=== PATIENT | male | born 1940 | race Caucasian/White ===

== ENCOUNTER 2021-11-05 04:20 | Inpatient (IN) | payer MEDICARE, BC ==
[~2021-11-05] VITALS: Ht 182.9 cm; Wt 86.2 kg
[2021-11-05] MEDS ORDERED: GABA1TAB (04:38)
[2021-11-05] MEDS ORDERED: ESCI10TA (04:38)
[2021-11-05] MEDS ORDERED: HYDR25TA86 (04:38)
[2021-11-05] MEDS ORDERED: ONDA4TAB5 PO (04:38)
--- NOTE | 2021-11-05 04:40 | NUR ---
perineal care done
--- NOTE | 2021-11-05 05:43 | NUR ---
Dr Espana at bedside, MSE in progress
--- NOTE | 2021-11-05 05:50 | NUR ---
wound care done.
[2021-11-05] MEDS ORDERED: TDAP DIPH,PERTUSS,TET VAC/PF 0.5 ML DISP.SYRIN IM ONE ×2 (06:00→06:03)
--- NOTE | 2021-11-05 06:00 | NUR ---
Patient taken to CT
[2021-11-05 06:12] LABS: HEMATOCRIT 31.8 % (36.7-47.1); MEAN CORPUSCULAR HEMOGLOBIN 29.1 uug (23.8-33.4); MEAN CORPUSCULAR VOLUME 86.2 fL (73.0-96.2); PLATELET COUNT (AUTO) 257 K/uL (152-348)
[2021-11-05] MEDS ORDERED: LIDOCAINE 1%-EPI 1:100,000 20 ML VIAL ONE (06:21)
--- NOTE | 2021-11-05 06:23 | NUR ---
Patient is back from CT
[2021-11-05 06:54] LABS: ALANINE AMINOTRANSFERASE 19 U/L (16-63); ALKALINE PHOSPHATASE 100 U/L (50-136); ASPARTATE AMINOTRANSFERASE 11 U/L (15-37); BILIRUBIN,DIRECT 0.1 mg/dL (0.0-0.2); BILIRUBIN,TOTAL 0.4 mg/dL (0.2-1.0); CARBON DIOXIDE 30 mmol/L (21-32); CHLORIDE 103 mmol/L (98-107); CREATININE 1.8 mg/dL (0.6-1.3); TOTAL PROTEIN, SERUM 7.1 g/dL (6.4-8.2); UREA NITROGEN, BLOOD 29 mg/dL (7-18)
[2021-11-05] MEDS ORDERED: ACET-2154 PO (06:54)
[2021-11-05] MEDS ORDERED: FERR325T28 PO (06:54)
[2021-11-05] MEDS ORDERED: INSU100V7 SQ (06:54)
[2021-11-05] MEDS ORDERED: DOCU100C36 PO (06:54)
[2021-11-05] MEDS ORDERED: FAMO-132 PO (06:54)
[2021-11-05] MEDS ORDERED: CALC100067 PO (06:54)
[2021-11-05] MEDS ORDERED: MAG30ORA PO (06:54)
[2021-11-05] MEDS ORDERED: FOLI0.8T2 PO (06:54)
[2021-11-05] MEDS ORDERED: LINA5TAB PO (06:54)
[2021-11-05] MEDS ORDERED: NUT.237L67 PO (06:54)
[2021-11-05] MEDS ORDERED: FLUD0.1T PO (06:54)
[2021-11-05] MEDS ORDERED: MAGN400O6 PO (06:54)
[2021-11-05] MEDS ORDERED: ONDA-104 PO (06:54)
[2021-11-05] MEDS ORDERED: GABA-532 PO (06:54)
[2021-11-05] MEDS ORDERED: HYDR-4077 PO ×2 (06:54)
[2021-11-05] MEDS ORDERED: POTA8TAB3 PO (06:54)
[2021-11-05] MEDS ORDERED: LOPE2TAB25 PO (06:54)
[2021-11-05] MEDS ORDERED: ERGO50CA PO (06:54)
[2021-11-05 06:57] LABS: GLUCOSE 312 mg/dL (74-106)
[2021-11-05] MEDS ORDERED: LIDOCAINE 1%-EPI 1:100,000 20 ML VIAL IJ ONE (07:00)
[2021-11-05] MEDS ORDERED: LIDOCAINE HCL 1% 20 ML VIAL IJ ONE (07:00)
--- NOTE | 2021-11-05 07:13 | NUR ---
change of shift report to incoming RN
--- NOTE | 2021-11-05 07:15 | NUR ---
DR Lepe spoke to Dr Fortune for admission.
[2021-11-05] MEDS ORDERED: ONDANSETRON 4 MG/2 ML VIAL ONE (07:44)
[2021-11-05] MEDS ORDERED: ACETAMINOPHEN 325 MG TABLET-SA PATIENTS-PAIN ONLY PO PRN (08:45)
[2021-11-05] MEDS ORDERED: MAG HYDROX/AL HYDROX/SIMETH 30 ML LIQUID UDC PO PRN (08:45)
[2021-11-05 08:46] LABS: CREATINE KINASE, TOTAL 89 U/L (39-308)
[2021-11-05] MEDS ORDERED: ACETAMINOPHEN 325 MG TABLET PO PRN (09:15)
[2021-11-05] MEDS: LINAGLIPTIN 5 MG TABLET PO SCH (09:17)
[2021-11-05] MEDS: FERROUS SULFATE 325 MG TABEC PO SCH (09:17)
[2021-11-05] MEDS: NEPRO (VANILLA) 237 ML CAN PO SCH (09:18)
[2021-11-05] MEDS ORDERED: ACETAMINOPHEN 325 MG TABLET ONE (09:20)
[2021-11-05] MEDS ORDERED: DOCUSATE SODIUM 100 MG CAPSULE PO ONE (09:20)
[2021-11-05] MEDS ORDERED: hydrALAZINE HCL 50 MG TABLET ONE (09:21)
[2021-11-05] MEDS ORDERED: FAMOTIDINE 20 MG TABLET ONE (09:21)
[2021-11-05] MEDS ORDERED: GABAPENTIN 100 MG CAPSULE ONE (09:21)
[2021-11-05] MEDS ORDERED: ESCI10TA PO (09:25)
[2021-11-05] MEDS: DOCUSATE SODIUM 100 MG CAPSULE PO SCH ×2 (09:27→16:26)
[2021-11-05] MEDS: hydrALAZINE HCL 50 MG TABLET PO SCH ×3 (09:27→22:26)
[2021-11-05] MEDS: FAMOTIDINE 20 MG TABLET PO SCH (09:27)
[2021-11-05] MEDS: FOLIC ACID/VITAMIN B COMP W-C TABLET PO SCH (09:27)
[2021-11-05] MEDS: GABAPENTIN 100 MG CAPSULE PO SCH ×2 (09:27→16:26)
--- NOTE | 2021-11-05 09:30 | NUR ---
Pt C/O headache, Tylenol 650 Po given.
--- NOTE | 2021-11-05 10:30 | NUR ---
Acetaminophen effective, pt denies headache.
--- NOTE | 2021-11-05 12:20 | NUR ---
Pt assissted w/ feeding. Ate 100% of lunch tray.
--- NOTE | 2021-11-05 13:10 | NUR ---
Dr Fortune at the bedside.
--- NOTE | 2021-11-05 13:44 | NUR ---
Patient is resting comfortably in bed with eyes closed, NAD noted.
--- NOTE | 2021-11-05 15:42 | NUR ---
Received report from [employer]. Patient admitted onto unit. Photos taken of patient's laceration on posterior head. Patient uneasy about assessing skin for sores or wounds.
[2021-11-05 16:00] VITALS: BP 155/89
--- NOTE | 2021-11-05 18:33 | NUR ---
Patient received care well throughout shift with no complaints of pain or distress. IV site on right antecubital patent and intact. Admission process completed. Photos of patient's wound on posterior head taken and placed in chart. Bed left in lowest position with call light within reach. Will endorse information to PM nurse.
[2021-11-05 20:32] VITALS: BP 154/90
[2021-11-06 00:01] VITALS: BP 161/82
[2021-11-06 04:16] VITALS: BP 137/70
--- NOTE | 2021-11-06 05:58 | NUR ---
Slept intermittently, no noted acute distress. Denies chest pain. Assisted to the BR. Needs assessed and attended to. Bed in locked and low position w/ call light within easy reach.
[2021-11-06] MEDS: hydrALAZINE HCL 50 MG TABLET PO SCH ×3 (06:09→21:35)
[2021-11-06] MEDS: FOLIC ACID/VITAMIN B COMP W-C TABLET PO SCH (08:27)
[2021-11-06] MEDS: FLUDROCORTISONE ACETATE 0.1 MG TABLET PO SCH (08:27)
[2021-11-06] MEDS: LINAGLIPTIN 5 MG TABLET PO SCH (08:27)
[2021-11-06] MEDS: FAMOTIDINE 20 MG TABLET PO SCH (08:27)
[2021-11-06] MEDS: FERROUS SULFATE 325 MG TABEC PO SCH (08:27)
[2021-11-06] MEDS: GABAPENTIN 100 MG CAPSULE PO SCH (08:27)
[2021-11-06] MEDS: DOCUSATE SODIUM 100 MG CAPSULE PO SCH ×2 (08:30→16:11)
[2021-11-06] MEDS ORDERED: DEXTROSE 50% 50 ML DISP.SYRIN IV PRN (08:30)
[2021-11-06] MEDS: NEPRO (VANILLA) 237 ML CAN PO SCH (08:36)
[2021-11-06] MEDS ORDERED: ASPIRIN 81 MG TAB.CHEW PO SCH (09:00)
[2021-11-06 09:08] LABS: HEMATOCRIT 33.3 % (36.7-47.1); MEAN CORPUSCULAR HEMOGLOBIN 29.7 uug (23.8-33.4); MEAN CORPUSCULAR VOLUME 87.2 fL (73.0-96.2); PLATELET COUNT (AUTO) 264 K/uL (152-348)
[2021-11-06 09:30] LABS: CARBON DIOXIDE 28 mmol/L (21-32); CHLORIDE 101 mmol/L (98-107); CREATININE 1.9 mg/dL (0.6-1.3); UREA NITROGEN, BLOOD 30 mg/dL (7-18)
[2021-11-06 09:35] LABS: GLUCOSE 303 mg/dL (74-106)
[2021-11-06 09:36] LABS: ALANINE AMINOTRANSFERASE 26 U/L (16-63); ALKALINE PHOSPHATASE 103 U/L (50-136); ASPARTATE AMINOTRANSFERASE 14 U/L (15-37); BILIRUBIN,TOTAL 0.5 mg/dL (0.2-1.0); CHOLESTEROL 190 mg/dL (<200); HDL CHOLESTEROL 46 mg/dL (40-60); MAGNESIUM 1.9 mg/dL (1.8-2.4); PHOSPHOROUS 3.3 mg/dL (2.5-4.9); TOTAL PROTEIN, SERUM 7.6 g/dL (6.4-8.2); TRIGLYCERIDES 157 MG/DL (30-150)
[2021-11-06 09:48] LABS: IRON, SERUM 55 ug/dL (50-175)
[2021-11-06 09:59] LABS: THYROID STIMULATING HORMONE 1.161 mIU/mL (0.358-3.740)
[2021-11-06 11:05] VITALS: BP 152/82
[2021-11-06] MEDS: BLOOD SUGAR DIAGNOSTIC 1 EACH STRIP VI SCH ×3 (11:31→21:24)
[2021-11-06] MEDS: INSULIN REGULAR, HUMAN 300 UNIT/3 ML VIAL SQ PRN ×2 (11:36→16:17)
--- NOTE | 2021-11-06 12:31 | NUR ---
Patient being picked up by EMT for transfer to [place] for MRI of Brain without contrast.
--- NOTE | 2021-11-06 12:59 | NUR ---
WOUND CARE CONSULT: PT OFF CAMPUS AT THIS TIME HAVING MRI. DISCUSSED SKIN WITH NURSING STAFF AND RN REPORTS CLOSED HEAD LACERATION AND SOME REDNESS TO GROIN FOLDS/SCROTUM, PRESENT ON ADMISSION. RECOMMENDATIONS MADE FOR SKIN PROTECTION. DISCUSSED WITH NURSING STAFF. MD IN AGREEMENT WITH PLAN OF CARE.
[2021-11-06] MEDS ORDERED: REMEDY ESSENTIAL ZINC PASTE 113 GM TOP PRN (13:15)
--- NOTE | 2021-11-06 14:34 | NUR ---
pt off campus for MRI, will do carotid and kidney us tmrw.
--- NOTE | 2021-11-06 15:13 | NUR ---
Patient back on unit.
[2021-11-06 15:21] VITALS: BP 159/80
[2021-11-06] MEDS: CLOPIDOGREL 75 MG TABLET PO SCH (16:11)
[2021-11-06] MEDS: CLOTRIMAZOLE 1% CREAM 30 GM TUBE TOP SCH (16:11)
--- NOTE | 2021-11-06 18:30 | NUR ---
Patient received care well throughout shift with minimal complaints of pain or distress. Patient seen by PT and classified patient as moderate assistance. Patient able to use walker with assistance, but claims to be dizzy when standing up. Patient seen by speech therapist and placed patient on mechanical soft diet. IV site in place and patent. Bed left in lowest position with call light within reach. Will endorse information to PM nurse.
--- NOTE | 2021-11-06 20:00 | NUR ---
Patient sinus rhythm with episode of sinus tach twice but not sustaining. Patient has no complain of chest pain, no headaches, bed alarm is on, call light within reach.
--- NOTE | 2021-11-06 20:00 | NUR ---
Received patient in bed, watching TV no sob no chest pain, no complain of pain, given po meds tolerate tolerate no choking, no gagging noted. offered urinal for bladder elimination, but also uses diaper episode of incontinence. Tx done on scrotum redness, call light within reach, cont to monitor.
[2021-11-06 20:42] VITALS: BP 156/100
[2021-11-06] MEDS: ESCITALOPRAM OXALATE 10 MG TABLET PO SCH (21:28)
[2021-11-06] MEDS: ATORVASTATIN 40 MG TABLET PO SCH (21:28)
[2021-11-07 00:15] VITALS: BP 155/86
[2021-11-07 04:46] VITALS: BP 155/85
[2021-11-07] MEDS: hydrALAZINE HCL 50 MG TABLET PO SCH ×3 (05:03→21:00)
[2021-11-07] MEDS: BLOOD SUGAR DIAGNOSTIC 1 EACH STRIP VI SCH ×4 (05:04→21:00)
--- NOTE | 2021-11-07 05:36 | NUR ---
Patient awake but forgetful no sob no chest pain, no complain of pain, encouraged to turn and reposition, voiding freely, no complain of headaches, no dizziness at this time, cont to monitor.
[2021-11-07 07:03] LABS: HEMATOCRIT 30.1 % (36.7-47.1); MEAN CORPUSCULAR HEMOGLOBIN 29.1 uug (23.8-33.4); PLATELET COUNT (AUTO) 228 K/uL (152-348)
[2021-11-07 07:15] LABS: CARBON DIOXIDE 27 mmol/L (21-32); CHLORIDE 102 mmol/L (98-107); CREATININE 1.7 mg/dL (0.6-1.3); GLUCOSE 206 mg/dL (74-106); MAGNESIUM 1.9 mg/dL (1.8-2.4); PHOSPHOROUS 3.7 mg/dL (2.5-4.9); POTASSIUM 3.6 mmol/L (3.5-5.1); UREA NITROGEN, BLOOD 32 mg/dL (7-18)
--- NOTE | 2021-11-07 08:00 | NUR ---
resting in bed, oriented x 3 but forgetful, tele ST 102, on room air, no dyspnea noted, denies of pain, readied for breakfast, call light within reach
[2021-11-07] MEDS: LINAGLIPTIN 5 MG TABLET PO SCH (08:51)
[2021-11-07] MEDS: FAMOTIDINE 20 MG TABLET PO SCH (08:51)
[2021-11-07] MEDS: INSULIN REGULAR, HUMAN 300 UNIT/3 ML VIAL SQ PRN ×4 (08:51→21:02)
[2021-11-07] MEDS: FLUDROCORTISONE ACETATE 0.1 MG TABLET PO SCH (08:52)
[2021-11-07] MEDS: FOLIC ACID/VITAMIN B COMP W-C TABLET PO SCH (08:52)
[2021-11-07] MEDS: FERROUS SULFATE 325 MG TABEC PO SCH (08:52)
[2021-11-07] MEDS: CLOPIDOGREL 75 MG TABLET PO SCH (08:52)
[2021-11-07] MEDS: NEPRO (VANILLA) 237 ML CAN PO SCH (08:52)
[2021-11-07] MEDS: DOCUSATE SODIUM 100 MG CAPSULE PO SCH ×2 (08:52→17:09)
[2021-11-07] MEDS: CLOTRIMAZOLE 1% CREAM 30 GM TUBE TOP SCH ×2 (08:53→17:07)
[2021-11-07 11:00] VITALS: BP 151/91
--- NOTE | 2021-11-07 11:30 | NUR ---
son here visiting
[2021-11-07 16:00] VITALS: BP 143/88
--- NOTE | 2021-11-07 18:24 | NUR ---
no distress noted, cooperative with care, dozing on and off in between care, all needsa ttended and met, call light within reach
[2021-11-07 20:20] VITALS: BP 160/88
[2021-11-07] MEDS: ATORVASTATIN 40 MG TABLET PO SCH (21:00)
[2021-11-07] MEDS: ESCITALOPRAM OXALATE 10 MG TABLET PO SCH (21:00)
[2021-11-08 00:43] VITALS: BP 159/82
[2021-11-08 04:28] VITALS: BP 163/88
[2021-11-08] MEDS: hydrALAZINE HCL 50 MG TABLET PO SCH ×2 (06:04→14:33)
[2021-11-08] MEDS: BLOOD SUGAR DIAGNOSTIC 1 EACH STRIP VI SCH ×3 (06:14→17:13)
[2021-11-08] MEDS: INSULIN REGULAR, HUMAN 300 UNIT/3 ML VIAL SQ PRN ×3 (08:17→17:20)
[2021-11-08] MEDS: FLUDROCORTISONE ACETATE 0.1 MG TABLET PO SCH (08:18)
[2021-11-08] MEDS: LINAGLIPTIN 5 MG TABLET PO SCH (08:18)
[2021-11-08] MEDS: NEPRO (VANILLA) 237 ML CAN PO SCH (08:18)
[2021-11-08] MEDS: DOCUSATE SODIUM 100 MG CAPSULE PO SCH ×2 (08:18→17:21)
[2021-11-08] MEDS: FAMOTIDINE 20 MG TABLET PO SCH (08:18)
[2021-11-08] MEDS: CLOPIDOGREL 75 MG TABLET PO SCH (08:18)
[2021-11-08] MEDS: FERROUS SULFATE 325 MG TABEC PO SCH (08:18)
[2021-11-08] MEDS: FOLIC ACID/VITAMIN B COMP W-C TABLET PO SCH (08:18)
[2021-11-08] MEDS: CLOTRIMAZOLE 1% CREAM 30 GM TUBE TOP SCH ×2 (08:19→17:22)
--- NOTE | 2021-11-08 08:30 | NUR ---
resting in bed, oriented x 2-3, forgetful, tele SR 98, denies of pain, on room air, no dyspnea noted, ate fair for breakfast, on aspiration precautions, no coughing noted, tech here to do 2d echo, call light within each
[2021-11-08] MEDS ORDERED: METOPROLOL TARTRATE 25 MG TABLET PO SCH (09:30)
--- NOTE | 2021-11-08 11:30 | NUR ---
seen by Dr Cason with order
--- NOTE | 2021-11-08 11:53 | NUR ---
PT here at bedside, urine specimen sent to lab
[2021-11-08 11:58] VITALS: BP 144/91
[2021-11-08 16:04] VITALS: BP 135/74
--- NOTE | 2021-11-08 18:48 | NUR ---
no distress noted, cooperative with care, watching TV at times, all needs attended and met, call light within reach
[2021-11-08 19:00] LABS: *BILIRUBIN,URIN NEGATIVE (NEGATIVE); *BLOOD, URINE NEGATIVE (NEGATIVE); *CLARITY,URINE CLEAR (CLEAR); *COLOR,URINE YELLOW (YELLOW); *KETONES,URINE NEGATIVE (NEGATIVE); *UROBILINOGEN,URINE 0.2 E.U./dl (NORMAL); LEUKOCYTE ESTERASE ,URINE NEGATIVE (NEGATIVE); NITRITE, URINE NEGATIVE (NEGATIVE); PH,URINE 5.5 (5.0-8.0)
[2021-11-08] MEDS ORDERED: Insulin Glargine,Hum SQ (19:06)
[2021-11-08] MEDS ORDERED: METO25TA6 PO (19:06)
[2021-11-08] MEDS ORDERED: ATOR40TA PO (19:06)
[2021-11-08] MEDS ORDERED: HYDR50TA68 PO (19:06)
[2021-11-08] MEDS ORDERED: MENT113O TOP (19:06)
[2021-11-08] MEDS ORDERED: CLOP75TA33 PO (19:06)
[2021-11-08] MEDS ORDERED: Blood Sugar Diagnostic VI (19:06)
[2021-11-08] MEDS ORDERED: CLOT30CR24 TOP (19:06)
[2021-11-08] MEDS ORDERED: INSU100V28 SQ (19:06)
[2021-11-08] MEDS ORDERED: DEXT50DI8 IV (19:06)
[2021-11-08 19:10] LABS: UGLUCOSE 1+ (NEGATIVE)
[2021-11-08 19:20] LABS: BACTERIA,URINE FEW /HPF (NONE SEEN); RBC,URINE 0-3 /HPF (0-3); SQUAMOUS EPITHELIAL CELL,UR FEW /HPF (NONE SEEN); WBC,URINE 0-3 /HPF (0-3)
--- NOTE | 2021-11-08 19:39 | NUR ---
Patient DC by Dr. Guillaume from Med Surg and admit to ARU with Dx: Acute/subacute CVA.
[2021-11-08] MEDS ORDERED: INSULIN GLARGINE,HUM 300 UNITS/3 ML CARTRIDGE SQ SCH (21:00)
== END 2021-11-08 20:00 | DRG 64 ==
LOC: ER 04:23 → TRANSITION 07:59 → TELE3 14:41 → MEDSURG3 11-08 12:35
PROVIDERS: ADMIT Internal Medicine; ATTEND Internal Medicine
PROC: 0HQ0XZZ Repair Scalp Skin, External Approach (ICD-10-PCS; principal; 2021-11-05)
DX: I63.9 Cerebral infarction, unspecified (principal); N17.0 Acute kidney failure with tubular necrosis; G23.8 Other specified degenerative diseases of basal ganglia; D68.69 Other thrombophilia; S01.01XA Laceration without foreign body of scalp, initial encounter; Z20.822 Contact with and (suspected) exposure to COVID-19; Z86.73 Personal history of transient ischemic attack (TIA), and cerebral infarction without residual deficits; Z87.891 Personal history of nicotine dependence; Z98.61 Coronary angioplasty status; N18.9 Chronic kidney disease, unspecified; E11.65 Type 2 diabetes mellitus with hyperglycemia; I25.10 Atherosclerotic heart disease of native coronary artery without angina pectoris; R94.31 Abnormal electrocardiogram [ECG] [EKG]; F03.90 Unspecified dementia, unspecified severity, without behavioral disturbance, psychotic disturbance, mood disturbance, and anxiety; K21.9 Gastro-esophageal reflux disease without esophagitis; Z74.09 Other reduced mobility; D72.828 Other elevated white blood cell count; F32.9 Major depressive disorder, single episode, unspecified; E11.22 Type 2 diabetes mellitus with diabetic chronic kidney disease; E66.3 Overweight; E78.5 Hyperlipidemia, unspecified; Z96.652 Presence of left artificial knee joint; E11.51 Type 2 diabetes mellitus with diabetic peripheral angiopathy without gangrene; G90.8 Other disorders of autonomic nervous system; I95.1 Orthostatic hypotension; N20.0 Calculus of kidney; I70.8 Atherosclerosis of other arteries; R29.703 NIHSS score 3; Z79.4 Long term (current) use of insulin; W18.30XA Fall on same level, unspecified, initial encounter; Y93.9 Activity, unspecified; Y92.89 Other specified places as the place of occurrence of the external cause; I12.9 Hypertensive chronic kidney disease with stage 1 through stage 4 chronic kidney disease, or unspecified chronic kidney disease; Z66 Do not resuscitate
CPT/HCPCS: 36415; 70450; 70551; 71045; 76770; 83550; 83735; 84100; 84443; 84484; 85025; 87040; 87086; 90715; 93005; 93307; 93880; A4663; A6209; G0378; J1815; J2405; J3490

== ENCOUNTER 2021-11-06 14:49 | Inpatient (IN) | payer MEDICARE, BC ==
[~2021-11-06 14:49] MED LIST: ACET-2154 PO; CALC100067 PO; DOCU100C36 PO; ERGO50CA PO; ESCI10TA PO; FAMO-132 PO; FERR325T28 PO; FLUD0.1T PO; FOLI0.8T2 PO; GABA-532 PO; HYDR-4077 PO; INSU100V7 SQ; LINA5TAB PO; LOPE2TAB25 PO; MAG30ORA PO; MAGN400O6 PO; NUT.237L67 PO; ONDA-104 PO; POTA8TAB3 PO
[2021-11-08] MEDS ORDERED: METO25TA6 PO (19:06)
[2021-11-08] MEDS ORDERED: ATOR40TA PO (19:06)
[2021-11-08] MEDS ORDERED: CLOT30CR24 TOP (19:06)
[2021-11-08] MEDS ORDERED: CLOP75TA33 PO (19:06)
[2021-11-08] MEDS ORDERED: MENT113O TOP (19:06)
[2021-11-08] MEDS ORDERED: DEXT50DI8 IV (19:06)
[2021-11-08] MEDS ORDERED: HYDR50TA68 PO (19:06)
[2021-11-08] MEDS ORDERED: INSU100V28 SQ (19:06)
[2021-11-08] MEDS ORDERED: Insulin Glargine,Hum SQ (19:06)
[2021-11-08] MEDS ORDERED: Blood Sugar Diagnostic VI (19:06)
--- NOTE | 2021-11-08 20:05 | NUR ---
Admitted to ARU, Dx: Acute/subacute CVA. Routine admission care done, plan of care initiated. Assessed skin. Needs attended. Call light within easy reach.
[2021-11-08] MEDS ORDERED: CALMOSEPTINE 113 GM OINTMENT TOP PRN (20:15)
[2021-11-08] MEDS ORDERED: ACETAMINOPHEN 325 MG TABLET-SA PATIENTS-PAIN ONLY PO PRN (20:15)
[2021-11-08] MEDS ORDERED: DEXTROSE 50% 50 ML DISP.SYRIN IV PRN (20:15)
[2021-11-08 21:22] VITALS: BP 128/70
[2021-11-08] MEDS: BLOOD SUGAR DIAGNOSTIC 1 EACH STRIP VI SCH (22:03)
[2021-11-08] MEDS: METOPROLOL TARTRATE 25 MG TABLET PO SCH (22:04)
[2021-11-08] MEDS: ESCITALOPRAM OXALATE 10 MG TABLET PO SCH (22:05)
[2021-11-08] MEDS: ATORVASTATIN 40 MG TABLET PO SCH (22:05)
[2021-11-08] MEDS: hydrALAZINE HCL 50 MG TABLET PO SCH (22:07)
[2021-11-08] MEDS: INSULIN GLARGINE,HUM 300 UNITS/3 ML CARTRIDGE SQ SCH (22:09)
[2021-11-08] MEDS: INSULIN REGULAR, HUMAN 300 UNIT/3 ML VIAL SQ PRN (22:24)
[2021-11-09 04:15] VITALS: BP 120/72
[2021-11-09] MEDS: hydrALAZINE HCL 50 MG TABLET PO SCH ×3 (06:08→21:04)
[2021-11-09] MEDS ORDERED: REMEDY ESSENTIAL ZINC PASTE 113 GM TP PRN (06:15)
[2021-11-09] MEDS: BLOOD SUGAR DIAGNOSTIC 1 EACH STRIP VI SCH ×4 (07:01→20:37)
[2021-11-09 08:00] VITALS: BP 145/67
[2021-11-09] MEDS ORDERED: POTASSIUM CHLORIDE 8 MEQ TAB.PRT.SR PO SCH (09:00)
[2021-11-09] MEDS: METOPROLOL TARTRATE 25 MG TABLET PO SCH ×2 (09:00→20:36)
[2021-11-09] MEDS: GABAPENTIN 100 MG CAPSULE PO SCH ×2 (09:50→17:29)
[2021-11-09] MEDS: LINAGLIPTIN 5 MG TABLET PO SCH (09:50)
[2021-11-09] MEDS: FOLIC ACID/VITAMIN B COMP W-C TABLET PO SCH (09:50)
[2021-11-09] MEDS: CLOPIDOGREL 75 MG TABLET PO SCH (09:51)
[2021-11-09] MEDS: FAMOTIDINE 20 MG TABLET PO SCH (09:51)
[2021-11-09] MEDS: DOCUSATE SODIUM 100 MG CAPSULE PO SCH ×2 (09:51→17:29)
[2021-11-09] MEDS: CLOTRIMAZOLE 1% CREAM 30 GM TUBE TOP SCH ×2 (09:57→17:30)
[2021-11-09] MEDS: REMEDY ESSENTIAL ZINC PASTE 113 GM TOP SCH ×2 (09:57→20:37)
[2021-11-09] MEDS: NEPRO (VANILLA) 237 ML CAN PO SCH (10:00)
[2021-11-09] MEDS: INSULIN REGULAR, HUMAN 300 UNIT/3 ML VIAL SQ PRN ×3 (11:54→20:41)
[2021-11-09 16:16] VITALS: BP 125/75
--- NOTE | 2021-11-09 18:58 | NUR ---
patient in bed comfortable. He is on room air, has right hand IV 20 guage. A&Ox 2-3 with periods of confusion. He walked with PT today, after ghe was exhausted. No complain of pain and no distress nor discomfort noted. BS 356 @1130 10 units given, 278 at 1630 with 6 units given.
[2021-11-09 20:08] VITALS: BP 119/62
[2021-11-09] MEDS: ATORVASTATIN 40 MG TABLET PO SCH (20:36)
[2021-11-09] MEDS: ESCITALOPRAM OXALATE 10 MG TABLET PO SCH (20:36)
[2021-11-09] MEDS: INSULIN GLARGINE,HUM 300 UNITS/3 ML CARTRIDGE SQ SCH (20:40)
--- NOTE | 2021-11-09 21:32 | NUR ---
Patient in bed at this time, AOx2, no sob, On room air, saturation 97 %, call light within easy reach,
[2021-11-10 04:12] VITALS: BP 122/56
[2021-11-10] MEDS: hydrALAZINE HCL 50 MG TABLET PO SCH ×3 (05:39→21:11)
[2021-11-10] MEDS: BLOOD SUGAR DIAGNOSTIC 1 EACH STRIP VI SCH ×4 (05:50→21:05)
[2021-11-10 07:51] VITALS: BP 140/77
[2021-11-10] MEDS: DOCUSATE SODIUM 100 MG CAPSULE PO SCH ×2 (09:51→16:53)
[2021-11-10] MEDS: METOPROLOL TARTRATE 25 MG TABLET PO SCH ×2 (09:52→21:02)
[2021-11-10] MEDS: CLOPIDOGREL 75 MG TABLET PO SCH (09:52)
[2021-11-10] MEDS: LINAGLIPTIN 5 MG TABLET PO SCH (09:52)
[2021-11-10] MEDS: POTASSIUM CHLORIDE 8 MEQ TAB.PRT.SR PO SCH (09:52)
[2021-11-10] MEDS: FOLIC ACID/VITAMIN B COMP W-C TABLET PO SCH (09:52)
[2021-11-10] MEDS: GABAPENTIN 100 MG CAPSULE PO SCH ×2 (09:52→16:53)
[2021-11-10] MEDS: FAMOTIDINE 20 MG TABLET PO SCH (09:52)
[2021-11-10] MEDS: NEPRO (VANILLA) 237 ML CAN PO SCH (09:53)
[2021-11-10] MEDS: REMEDY ESSENTIAL ZINC PASTE 113 GM TOP SCH ×2 (09:54→21:02)
[2021-11-10] MEDS: CLOTRIMAZOLE 1% CREAM 30 GM TUBE TOP SCH ×2 (09:54→17:04)
[2021-11-10] MEDS: INSULIN REGULAR, HUMAN 300 UNIT/3 ML VIAL SQ PRN ×3 (11:33→21:09)
--- NOTE | 2021-11-10 13:31 | NUR ---
0720-Rec'd patient in bed, asleep, no respiratory distress noted, skin W/D to the touch,m afebrile. Patient able to wake up, denies pain, oral fluids offered as joana. call light at reach. 0900-Scheduled medications administered as ordered, no ASE noted. Oral fluids taken well. 11:30-FS for BS checks done and with 268 BS results, S/S administered as ordered. No s/s of hypo/hyperglycemia noted.
[2021-11-10 16:42] VITALS: BP 128/68
[2021-11-10 20:00] VITALS: BP 121/62
[2021-11-10] MEDS: ESCITALOPRAM OXALATE 10 MG TABLET PO SCH (21:01)
[2021-11-10] MEDS: ATORVASTATIN 40 MG TABLET PO SCH (21:01)
[2021-11-10] MEDS: INSULIN GLARGINE,HUM 300 UNITS/3 ML CARTRIDGE SQ SCH (21:07)
[2021-11-11 04:00] VITALS: BP 123/67
[2021-11-11] MEDS: hydrALAZINE HCL 50 MG TABLET PO SCH ×3 (05:58→21:18)
[2021-11-11] MEDS: BLOOD SUGAR DIAGNOSTIC 1 EACH STRIP VI SCH ×4 (05:58→21:23)
--- NOTE | 2021-11-11 07:27 | NUR ---
Rec'd patient in bed, awake, watching tv, no c/o pain. On R/A and joana. well, no s/s of resp. ditress, hypo/hyperglycemia noted, call light at reach, safety measures in place.
[2021-11-11 07:52] VITALS: BP 134/66
[2021-11-11] MEDS: POTASSIUM CHLORIDE 8 MEQ TAB.PRT.SR PO SCH (09:23)
[2021-11-11] MEDS: DOCUSATE SODIUM 100 MG CAPSULE PO SCH ×2 (09:23→17:26)
[2021-11-11] MEDS: FOLIC ACID/VITAMIN B COMP W-C TABLET PO SCH (09:23)
[2021-11-11] MEDS: FAMOTIDINE 20 MG TABLET PO SCH (09:23)
[2021-11-11] MEDS: LINAGLIPTIN 5 MG TABLET PO SCH (09:23)
[2021-11-11] MEDS: GABAPENTIN 100 MG CAPSULE PO SCH ×2 (09:23→17:26)
[2021-11-11] MEDS: REMEDY ESSENTIAL ZINC PASTE 113 GM TOP SCH ×2 (09:24→20:55)
[2021-11-11] MEDS: CLOTRIMAZOLE 1% CREAM 30 GM TUBE TOP SCH ×2 (09:25→17:26)
[2021-11-11] MEDS: CLOPIDOGREL 75 MG TABLET PO SCH (09:26)
[2021-11-11] MEDS: NEPRO (VANILLA) 237 ML CAN PO SCH (09:26)
[2021-11-11] MEDS: METOPROLOL TARTRATE 25 MG TABLET PO SCH ×2 (10:17→20:54)
[2021-11-11] MEDS: INSULIN REGULAR, HUMAN 300 UNIT/3 ML VIAL SQ PRN ×3 (12:05→21:27)
--- NOTE | 2021-11-11 14:17 | NUR ---
0900-Due medications administered as ordered with no ASE noted; oral fluids taken well. Patient eating breakfast, supervision and assist provided as needed. Call light at reach. 11:30-FS for BS checks [id number] units administered as per SS, no s/s of hypo/hyperglycemia noted. 1300-Patient ate his lunch, assist as needed; supervision provided at all times.
[2021-11-11 15:49] VITALS: BP 142/75
--- NOTE | 2021-11-11 16:23 | NUR ---
INTERDISCIPLINARY TEAM CONFERENCE
[2021-11-11 20:00] VITALS: BP 148/80
[2021-11-11] MEDS: ESCITALOPRAM OXALATE 10 MG TABLET PO SCH (20:53)
[2021-11-11] MEDS: ATORVASTATIN 40 MG TABLET PO SCH (20:54)
[2021-11-11] MEDS: INSULIN GLARGINE,HUM 300 UNITS/3 ML CARTRIDGE SQ SCH (21:27)
[2021-11-12 03:39] LABS: *BILIRUBIN,URIN NEGATIVE (NEGATIVE); *BLOOD, URINE NEGATIVE (NEGATIVE); *CLARITY,URINE CLEAR (CLEAR); *COLOR,URINE YELLOW (YELLOW); *KETONES,URINE NEGATIVE (NEGATIVE); *UROBILINOGEN,URINE 0.2 E.U./dl (NORMAL); LEUKOCYTE ESTERASE ,URINE NEGATIVE (NEGATIVE); NITRITE, URINE NEGATIVE (NEGATIVE); UGLUCOSE NEGATIVE (NEGATIVE)
[2021-11-12 04:00] VITALS: BP 140/65
[2021-11-12] MEDS: hydrALAZINE HCL 50 MG TABLET PO SCH ×3 (06:07→22:40)
[2021-11-12] MEDS: ACETAMINOPHEN 325 MG TABLET PO PRN (06:07)
[2021-11-12] MEDS: BLOOD SUGAR DIAGNOSTIC 1 EACH STRIP VI SCH ×4 (06:32→20:08)
--- NOTE | 2021-11-12 06:34 | NUR ---
Slept throughout the night. No distress noted. Able to make needs known. Safety maintained. Will endorse to day shift.
[2021-11-12 07:36] LABS: HEMATOCRIT 31.7 % (36.7-47.1); MEAN CORPUSCULAR VOLUME 86.6 fL (73.0-96.2); PLATELET COUNT (AUTO) 243 K/uL (152-348)
[2021-11-12 08:00] VITALS: BP 128/62
[2021-11-12 08:02] LABS: ALANINE AMINOTRANSFERASE 16 U/L (16-63); ALKALINE PHOSPHATASE 90 U/L (50-136); ASPARTATE AMINOTRANSFERASE 6 U/L (15-37); BILIRUBIN,TOTAL 0.4 mg/dL (0.2-1.0); CARBON DIOXIDE 30 mmol/L (21-32); CHLORIDE 104 mmol/L (98-107); CREATININE 1.7 mg/dL (0.6-1.3); GLUCOSE 101 mg/dL (74-106); POTASSIUM 4.1 mmol/L (3.5-5.1); TOTAL PROTEIN, SERUM 6.9 g/dL (6.4-8.2); UREA NITROGEN, BLOOD 35 mg/dL (7-18)
[2021-11-12] MEDS: METOPROLOL TARTRATE 25 MG TABLET PO SCH ×2 (09:00→20:09)
--- NOTE | 2021-11-12 09:00 | NUR ---
BLOOD PRESSURE DURING THERAPY IS 102 SYSTOLIC SO UNABLE TO GIVE HIM THE BLOOD PRESSURE MEDICATIONS ORDERED AT THIS TIME WILL CONTINUE TO OBSERVE.
[2021-11-12] MEDS: POTASSIUM CHLORIDE 8 MEQ TAB.PRT.SR PO SCH (09:08)
[2021-11-12] MEDS: FOLIC ACID/VITAMIN B COMP W-C TABLET PO SCH (09:08)
[2021-11-12] MEDS: GABAPENTIN 100 MG CAPSULE PO SCH ×2 (09:08→17:49)
[2021-11-12] MEDS: CLOPIDOGREL 75 MG TABLET PO SCH (09:08)
[2021-11-12] MEDS: FAMOTIDINE 20 MG TABLET PO SCH (09:08)
[2021-11-12] MEDS: LINAGLIPTIN 5 MG TABLET PO SCH (09:09)
[2021-11-12] MEDS: DOCUSATE SODIUM 100 MG CAPSULE PO SCH ×2 (09:09→17:49)
[2021-11-12] MEDS: REMEDY ESSENTIAL ZINC PASTE 113 GM TOP SCH ×2 (09:14→22:41)
[2021-11-12] MEDS: NEPRO (VANILLA) 237 ML CAN PO SCH (09:14)
[2021-11-12] MEDS: CLOTRIMAZOLE 1% CREAM 30 GM TUBE TOP SCH ×2 (09:15→17:50)
[2021-11-12] MEDS: INSULIN REGULAR, HUMAN 300 UNIT/3 ML VIAL SQ PRN ×3 (12:15→20:15)
--- NOTE | 2021-11-12 14:20 | NUR ---
SLEEPING ON AND OFF WITH NO S/S OF HYPO/HYPERGLYCEMIC REACTIONS MADE COMFORTABLE WILL CONTINUE TO OBSERVE.
[2021-11-12 15:50] VITALS: BP_SYST 138; BP_SYST 148; BP_DIAS 79
--- NOTE | 2021-11-12 18:12 | NUR ---
RESTING AT THIS TIME BLOOD PRESSURE IS 138/72 DUE MEDICATIONS GIVEN MADE COMFORTABLE AND WILL CONTINUE TO OBSERVE.
[2021-11-12 20:00] VITALS: BP 137/71
[2021-11-12] MEDS: ESCITALOPRAM OXALATE 10 MG TABLET PO SCH (20:09)
[2021-11-12] MEDS: ATORVASTATIN 40 MG TABLET PO SCH (20:09)
[2021-11-12] MEDS: INSULIN GLARGINE,HUM 300 UNITS/3 ML CARTRIDGE SQ SCH (20:15)
[2021-11-13 04:00] VITALS: BP 125/55
[2021-11-13] MEDS: hydrALAZINE HCL 50 MG TABLET PO SCH ×3 (05:15→20:46)
[2021-11-13] MEDS: BLOOD SUGAR DIAGNOSTIC 1 EACH STRIP VI SCH ×4 (05:21→20:49)
--- NOTE | 2021-11-13 07:30 | NUR ---
Awake, alert, oriented x 3. Denies pain. Call light with in reach.
[2021-11-13 07:32] VITALS: BP 134/65
[2021-11-13] MEDS: DOCUSATE SODIUM 100 MG CAPSULE PO SCH ×2 (08:34→17:00)
[2021-11-13] MEDS: ACETAMINOPHEN 325 MG TABLET PO PRN (08:35)
[2021-11-13] MEDS: METOPROLOL TARTRATE 25 MG TABLET PO SCH ×2 (08:35→20:46)
[2021-11-13] MEDS: GABAPENTIN 100 MG CAPSULE PO SCH ×2 (08:35→17:00)
[2021-11-13] MEDS: LINAGLIPTIN 5 MG TABLET PO SCH (08:35)
[2021-11-13] MEDS: CLOPIDOGREL 75 MG TABLET PO SCH (08:35)
[2021-11-13] MEDS: FOLIC ACID/VITAMIN B COMP W-C TABLET PO SCH (08:35)
[2021-11-13] MEDS: POTASSIUM CHLORIDE 8 MEQ TAB.PRT.SR PO SCH (08:35)
[2021-11-13] MEDS: FAMOTIDINE 20 MG TABLET PO SCH (08:35)
[2021-11-13] MEDS: NEPRO (VANILLA) 237 ML CAN PO SCH (08:36)
[2021-11-13] MEDS: CLOTRIMAZOLE 1% CREAM 30 GM TUBE TOP SCH ×2 (08:36→17:01)
[2021-11-13] MEDS: REMEDY ESSENTIAL ZINC PASTE 113 GM TOP SCH ×2 (08:36→20:47)
--- NOTE | 2021-11-13 14:10 | NUR ---
Reports of dizziness, BP checked, with in normal. Assisted out of bed by PT, orthostatic BP taken. Still with dizziness, able to stand up then back to bed.
[2021-11-13 15:11] VITALS: BP 133/60
[2021-11-13] MEDS: INSULIN REGULAR, HUMAN 300 UNIT/3 ML VIAL SQ PRN (17:34)
--- NOTE | 2021-11-13 17:53 | NUR ---
With fair appetite. Still with dizziness, but denies headache, nausea. Dr. Payan informed,will review medications
[2021-11-13 20:00] VITALS: BP 131/69
[2021-11-13] MEDS: ATORVASTATIN 40 MG TABLET PO SCH (20:46)
[2021-11-13] MEDS: ESCITALOPRAM OXALATE 10 MG TABLET PO SCH (20:46)
[2021-11-13] MEDS: INSULIN GLARGINE,HUM 300 UNITS/3 ML CARTRIDGE SQ SCH (20:48)
[2021-11-14 03:00] VITALS: BP 132/72
[2021-11-14] MEDS: hydrALAZINE HCL 50 MG TABLET PO SCH ×3 (05:51→21:02)
[2021-11-14] MEDS: BLOOD SUGAR DIAGNOSTIC 1 EACH STRIP VI SCH ×4 (06:09→20:44)
[2021-11-14 08:00] VITALS: BP 128/70
[2021-11-14] MEDS: POTASSIUM CHLORIDE 8 MEQ TAB.PRT.SR PO SCH (09:03)
[2021-11-14] MEDS: FAMOTIDINE 20 MG TABLET PO SCH (09:03)
[2021-11-14] MEDS: LINAGLIPTIN 5 MG TABLET PO SCH (09:03)
[2021-11-14] MEDS: FOLIC ACID/VITAMIN B COMP W-C TABLET PO SCH (09:03)
[2021-11-14] MEDS: CLOPIDOGREL 75 MG TABLET PO SCH (09:04)
[2021-11-14] MEDS: GABAPENTIN 100 MG CAPSULE PO SCH ×2 (09:04→16:41)
[2021-11-14] MEDS: DOCUSATE SODIUM 100 MG CAPSULE PO SCH ×2 (09:04→16:41)
[2021-11-14] MEDS: METOPROLOL TARTRATE 25 MG TABLET PO SCH ×2 (09:08→20:44)
[2021-11-14] MEDS: NEPRO (VANILLA) 237 ML CAN PO SCH (09:10)
[2021-11-14] MEDS: REMEDY ESSENTIAL ZINC PASTE 113 GM TOP SCH ×2 (09:11→20:44)
[2021-11-14] MEDS: CLOTRIMAZOLE 1% CREAM 30 GM TUBE TOP SCH ×2 (09:11→16:42)
[2021-11-14] MEDS: INSULIN REGULAR, HUMAN 300 UNIT/3 ML VIAL SQ PRN ×3 (11:55→20:21)
[2021-11-14 15:11] VITALS: BP 104/58
--- NOTE | 2021-11-14 18:14 | NUR ---
Patient in bed comfortable. Breathing normal on room air. No /s/s of pain nor distress noted. Calm and relax at this time. He is A&Ox4, he sleeps a lot during the day. Pt takes his pills whole. Redness on groin and fatoumata area. @1130 BS 175, 3units given and @1630 BS 167, 3units given. He is able to eat by himself, usually consumes 100% of his meals. @1200 patient Hydralazine held due to low blood pressure 104/58, 58. PT worked with patient today. Pt in bed resting comfortably. Will continue to monitor.
[2021-11-14 20:00] VITALS: BP 133/71
[2021-11-14] MEDS: INSULIN GLARGINE,HUM 300 UNITS/3 ML CARTRIDGE SQ SCH (20:19)
[2021-11-14] MEDS: ATORVASTATIN 40 MG TABLET PO SCH (20:43)
[2021-11-14] MEDS: ESCITALOPRAM OXALATE 10 MG TABLET PO SCH (20:43)
[2021-11-15 04:00] VITALS: BP 139/72
[2021-11-15] MEDS: hydrALAZINE HCL 50 MG TABLET PO SCH ×3 (05:28→21:40)
[2021-11-15] MEDS: BLOOD SUGAR DIAGNOSTIC 1 EACH STRIP VI SCH ×4 (06:13→20:21)
[2021-11-15 08:04] VITALS: BP 145/65
[2021-11-15 08:08] VITALS: BP 145/65
[2021-11-15] MEDS: CLOPIDOGREL 75 MG TABLET PO SCH (08:25)
[2021-11-15] MEDS: FOLIC ACID/VITAMIN B COMP W-C TABLET PO SCH (08:25)
[2021-11-15] MEDS: GABAPENTIN 100 MG CAPSULE PO SCH ×2 (08:25→16:07)
[2021-11-15] MEDS: NEPRO (VANILLA) 237 ML CAN PO SCH (08:25)
[2021-11-15] MEDS: LINAGLIPTIN 5 MG TABLET PO SCH (08:25)
[2021-11-15] MEDS: METOPROLOL TARTRATE 25 MG TABLET PO SCH ×2 (08:25→20:21)
[2021-11-15] MEDS: POTASSIUM CHLORIDE 8 MEQ TAB.PRT.SR PO SCH (08:25)
[2021-11-15] MEDS: DOCUSATE SODIUM 100 MG CAPSULE PO SCH ×2 (08:25→16:07)
[2021-11-15] MEDS: FAMOTIDINE 20 MG TABLET PO SCH (08:25)
[2021-11-15] MEDS: REMEDY ESSENTIAL ZINC PASTE 113 GM TOP SCH ×2 (08:37→20:21)
[2021-11-15] MEDS: CLOTRIMAZOLE 1% CREAM 30 GM TUBE TOP SCH ×2 (08:38→16:07)
[2021-11-15] MEDS: INSULIN REGULAR, HUMAN 300 UNIT/3 ML VIAL SQ PRN ×2 (16:07→20:30)
[2021-11-15 16:10] VITALS: BP 136/71
[2021-11-15 20:00] VITALS: BP 131/72
[2021-11-15] MEDS: ATORVASTATIN 40 MG TABLET PO SCH (20:20)
[2021-11-15] MEDS: ESCITALOPRAM OXALATE 10 MG TABLET PO SCH (20:21)
[2021-11-15] MEDS: INSULIN GLARGINE,HUM 300 UNITS/3 ML CARTRIDGE SQ SCH (20:27)
[2021-11-16 04:00] VITALS: BP 149/73
[2021-11-16] MEDS: hydrALAZINE HCL 50 MG TABLET PO SCH ×3 (05:22→22:43)
[2021-11-16] MEDS: BLOOD SUGAR DIAGNOSTIC 1 EACH STRIP VI SCH ×4 (06:16→20:10)
[2021-11-16 06:31] LABS: HEMATOCRIT 31.7 % (36.7-47.1); MEAN CORPUSCULAR VOLUME 86.9 fL (73.0-96.2); PLATELET COUNT (AUTO) 261 K/uL (152-348)
[2021-11-16 07:02] LABS: ALANINE AMINOTRANSFERASE 16 U/L (16-63); ALKALINE PHOSPHATASE 105 U/L (50-136); ASPARTATE AMINOTRANSFERASE 10 U/L (15-37); BILIRUBIN,TOTAL 0.3 mg/dL (0.2-1.0); CARBON DIOXIDE 29 mmol/L (21-32); CHLORIDE 104 mmol/L (98-107); CREATININE 2.1 mg/dL (0.6-1.3); GLUCOSE 87 mg/dL (74-106); POTASSIUM 4.3 mmol/L (3.5-5.1); TOTAL PROTEIN, SERUM 6.8 g/dL (6.4-8.2); UREA NITROGEN, BLOOD 43 mg/dL (7-18)
[2021-11-16 07:34] VITALS: BP 155/69
[2021-11-16] MEDS: FAMOTIDINE 20 MG TABLET PO SCH (08:09)
[2021-11-16] MEDS: DOCUSATE SODIUM 100 MG CAPSULE PO SCH ×2 (08:09→16:11)
[2021-11-16] MEDS: POTASSIUM CHLORIDE 8 MEQ TAB.PRT.SR PO SCH (08:09)
[2021-11-16] MEDS: FOLIC ACID/VITAMIN B COMP W-C TABLET PO SCH (08:09)
[2021-11-16] MEDS: LINAGLIPTIN 5 MG TABLET PO SCH (08:09)
[2021-11-16] MEDS: METOPROLOL TARTRATE 25 MG TABLET PO SCH ×2 (08:09→20:11)
[2021-11-16] MEDS: GABAPENTIN 100 MG CAPSULE PO SCH ×2 (08:10→16:11)
[2021-11-16] MEDS: CLOPIDOGREL 75 MG TABLET PO SCH (08:10)
[2021-11-16] MEDS: NEPRO (VANILLA) 237 ML CAN PO SCH (08:13)
[2021-11-16] MEDS: REMEDY ESSENTIAL ZINC PASTE 113 GM TOP SCH ×2 (09:12→20:18)
[2021-11-16] MEDS: CLOTRIMAZOLE 1% CREAM 30 GM TUBE TOP SCH ×2 (09:13→16:11)
[2021-11-16] MEDS: INSULIN REGULAR, HUMAN 300 UNIT/3 ML VIAL SQ PRN ×2 (10:54→15:47)
[2021-11-16 16:00] VITALS: BP 112/64
--- NOTE | 2021-11-16 19:40 | NUR ---
Received patient in bed, watching TV, no sob no chest pain, no complain of pain, patient incontinent of bladder rendered good fatoumata care, kept clean dry and comfortable, cont to monitor.
[2021-11-16 20:00] VITALS: BP 148/74
[2021-11-16] MEDS: ATORVASTATIN 40 MG TABLET PO SCH (20:11)
[2021-11-16] MEDS: ESCITALOPRAM OXALATE 10 MG TABLET PO SCH (20:11)
[2021-11-16] MEDS: INSULIN GLARGINE,HUM 300 UNITS/3 ML CARTRIDGE SQ SCH (20:33)
[2021-11-17 04:00] VITALS: BP 124/54
--- NOTE | 2021-11-17 05:19 | NUR ---
Patient slept most of the night, no sob no chest pain, no complain of pain, rendered total assist with adl's, kept clean dry and comfortable, cont to monitor.
[2021-11-17] MEDS: BLOOD SUGAR DIAGNOSTIC 1 EACH STRIP VI SCH ×4 (06:00→20:25)
[2021-11-17] MEDS: hydrALAZINE HCL 50 MG TABLET PO SCH ×3 (06:01→22:35)
[2021-11-17 06:28] LABS: CARBON DIOXIDE 27 mmol/L (21-32); CHLORIDE 105 mmol/L (98-107); CREATININE 2.1 mg/dL (0.6-1.3); GLUCOSE 73 mg/dL (74-106); POTASSIUM 4.1 mmol/L (3.5-5.1); UREA NITROGEN, BLOOD 44 mg/dL (7-18)
[2021-11-17 07:58] VITALS: BP 124/64
[2021-11-17] MEDS: DOCUSATE SODIUM 100 MG CAPSULE PO SCH ×2 (08:24→16:04)
[2021-11-17] MEDS: METOPROLOL TARTRATE 25 MG TABLET PO SCH ×2 (08:24→20:20)
[2021-11-17] MEDS: FAMOTIDINE 20 MG TABLET PO SCH (08:24)
[2021-11-17] MEDS: GABAPENTIN 100 MG CAPSULE PO SCH ×2 (08:24→16:04)
[2021-11-17] MEDS: POTASSIUM CHLORIDE 8 MEQ TAB.PRT.SR PO SCH (08:24)
[2021-11-17] MEDS: LINAGLIPTIN 5 MG TABLET PO SCH (08:24)
[2021-11-17] MEDS: CLOPIDOGREL 75 MG TABLET PO SCH (08:24)
[2021-11-17] MEDS: NEPRO (VANILLA) 237 ML CAN PO SCH (08:24)
[2021-11-17] MEDS: FOLIC ACID/VITAMIN B COMP W-C TABLET PO SCH (08:24)
[2021-11-17] MEDS: REMEDY ESSENTIAL ZINC PASTE 113 GM TOP SCH ×2 (09:46→21:57)
[2021-11-17] MEDS: CLOTRIMAZOLE 1% CREAM 30 GM TUBE TOP SCH ×2 (09:47→16:04)
[2021-11-17] MEDS: INSULIN REGULAR, HUMAN 300 UNIT/3 ML VIAL SQ PRN ×3 (11:15→20:29)
[2021-11-17 15:56] VITALS: BP 126/58
[2021-11-17 20:00] VITALS: BP 130/66
[2021-11-17] MEDS: ATORVASTATIN 40 MG TABLET PO SCH (20:19)
[2021-11-17] MEDS: ESCITALOPRAM OXALATE 10 MG TABLET PO SCH (20:19)
[2021-11-17] MEDS: INSULIN GLARGINE,HUM 300 UNITS/3 ML CARTRIDGE SQ SCH (20:28)
[2021-11-18 04:00] VITALS: BP 128/67
[2021-11-18] MEDS: hydrALAZINE HCL 50 MG TABLET PO SCH ×3 (06:14→22:10)
[2021-11-18] MEDS: BLOOD SUGAR DIAGNOSTIC 1 EACH STRIP VI SCH ×4 (07:11→20:31)
[2021-11-18] MEDS: DOCUSATE SODIUM 100 MG CAPSULE PO SCH ×2 (08:08→16:22)
[2021-11-18] MEDS: LINAGLIPTIN 5 MG TABLET PO SCH (08:08)
[2021-11-18] MEDS: FAMOTIDINE 20 MG TABLET PO SCH (08:08)
[2021-11-18] MEDS: CLOPIDOGREL 75 MG TABLET PO SCH (08:08)
[2021-11-18] MEDS: GABAPENTIN 100 MG CAPSULE PO SCH ×2 (08:08→16:22)
[2021-11-18] MEDS: NEPRO (VANILLA) 237 ML CAN PO SCH (08:09)
[2021-11-18] MEDS: POTASSIUM CHLORIDE 8 MEQ TAB.PRT.SR PO SCH (08:09)
[2021-11-18] MEDS: FOLIC ACID/VITAMIN B COMP W-C TABLET PO SCH (08:09)
[2021-11-18] MEDS: METOPROLOL TARTRATE 25 MG TABLET PO SCH ×2 (08:09→20:29)
[2021-11-18 08:10] VITALS: BP 132/63
[2021-11-18] MEDS: REMEDY ESSENTIAL ZINC PASTE 113 GM TOP SCH ×2 (09:03→20:18)
[2021-11-18] MEDS: CLOTRIMAZOLE 1% CREAM 30 GM TUBE TOP SCH ×2 (09:03→16:22)
[2021-11-18] MEDS: INSULIN REGULAR, HUMAN 300 UNIT/3 ML VIAL SQ PRN ×2 (11:13→16:23)
--- NOTE | 2021-11-18 14:26 | NUR ---
INTERDISCIPLINARY TEAM CONFERENCE
[2021-11-18 16:06] VITALS: BP 126/67
[2021-11-18 20:00] VITALS: BP 143/74
[2021-11-18] MEDS: ESCITALOPRAM OXALATE 10 MG TABLET PO SCH (20:29)
[2021-11-18] MEDS: ATORVASTATIN 40 MG TABLET PO SCH (20:29)
[2021-11-18] MEDS: INSULIN GLARGINE,HUM 300 UNITS/3 ML CARTRIDGE SQ SCH (20:30)
[2021-11-19 05:21] VITALS: BP 142/57
[2021-11-19] MEDS: hydrALAZINE HCL 50 MG TABLET PO SCH ×3 (05:43→21:26)
[2021-11-19] MEDS: BLOOD SUGAR DIAGNOSTIC 1 EACH STRIP VI SCH ×4 (06:07→20:02)
[2021-11-19 08:00] VITALS: BP 156/89
[2021-11-19] MEDS: CLOPIDOGREL 75 MG TABLET PO SCH (08:06)
[2021-11-19] MEDS: POTASSIUM CHLORIDE 8 MEQ TAB.PRT.SR PO SCH (08:06)
[2021-11-19] MEDS: LINAGLIPTIN 5 MG TABLET PO SCH (08:06)
[2021-11-19] MEDS: METOPROLOL TARTRATE 25 MG TABLET PO SCH ×2 (08:06→20:27)
[2021-11-19] MEDS: FAMOTIDINE 20 MG TABLET PO SCH (08:06)
[2021-11-19] MEDS: FOLIC ACID/VITAMIN B COMP W-C TABLET PO SCH (08:06)
[2021-11-19] MEDS: GABAPENTIN 100 MG CAPSULE PO SCH ×2 (08:06→16:09)
[2021-11-19] MEDS: NEPRO (VANILLA) 237 ML CAN PO SCH (08:06)
[2021-11-19] MEDS: DOCUSATE SODIUM 100 MG CAPSULE PO SCH ×2 (08:06→16:09)
[2021-11-19] MEDS: CLOTRIMAZOLE 1% CREAM 30 GM TUBE TOP SCH ×2 (09:34→16:59)
[2021-11-19] MEDS: REMEDY ESSENTIAL ZINC PASTE 113 GM TOP SCH ×2 (09:34→20:02)
[2021-11-19] MEDS: INSULIN REGULAR, HUMAN 300 UNIT/3 ML VIAL SQ PRN ×2 (11:06→16:10)
--- NOTE | 2021-11-19 14:20 | NUR ---
INDIVIDUALIZED PLAN OF CARE THIS WAS OBSERVED AND DONE ON 11/11/21 13:00
[2021-11-19 15:16] VITALS: BP 157/74
[2021-11-19] MEDS: INSULIN GLARGINE,HUM 300 UNITS/3 ML CARTRIDGE SQ SCH (20:06)
[2021-11-19] MEDS: ATORVASTATIN 40 MG TABLET PO SCH (20:22)
[2021-11-19] MEDS: ESCITALOPRAM OXALATE 10 MG TABLET PO SCH (20:22)
[2021-11-19 21:39] VITALS: BP 137/62
[2021-11-19] MEDS: IV NS 1000 ML 1,000 ML IV SCH (23:50)
[2021-11-20 04:26] VITALS: BP 141/78
[2021-11-20] MEDS: hydrALAZINE HCL 50 MG TABLET PO SCH ×3 (05:22→21:14)
--- NOTE | 2021-11-20 06:40 | NUR ---
Patient received in bed, no sob, room air, no c/o pain noted, call light with in easy reach, will continue to monitor.
[2021-11-20 07:31] VITALS: BP 162/71
[2021-11-20] MEDS: DOCUSATE SODIUM 100 MG CAPSULE PO SCH ×2 (08:06→16:03)
[2021-11-20] MEDS: FAMOTIDINE 20 MG TABLET PO SCH (08:06)
[2021-11-20] MEDS: NEPRO (VANILLA) 237 ML CAN PO SCH (08:07)
[2021-11-20] MEDS: GABAPENTIN 100 MG CAPSULE PO SCH ×2 (08:07→16:03)
[2021-11-20] MEDS: POTASSIUM CHLORIDE 8 MEQ TAB.PRT.SR PO SCH (08:07)
[2021-11-20] MEDS: METOPROLOL TARTRATE 25 MG TABLET PO SCH ×2 (08:07→20:09)
[2021-11-20] MEDS: LINAGLIPTIN 5 MG TABLET PO SCH (08:07)
[2021-11-20] MEDS: CLOPIDOGREL 75 MG TABLET PO SCH (08:07)
[2021-11-20] MEDS: FOLIC ACID/VITAMIN B COMP W-C TABLET PO SCH (08:07)
[2021-11-20] MEDS: REMEDY ESSENTIAL ZINC PASTE 113 GM TOP SCH ×2 (08:27→20:21)
[2021-11-20] MEDS: CLOTRIMAZOLE 1% CREAM 30 GM TUBE TOP SCH ×2 (08:27→16:03)
[2021-11-20] MEDS: IV NS 1000 ML 1,000 ML IV SCH (12:57)
[2021-11-20 15:49] VITALS: BP 153/74
[2021-11-20] MEDS: ESCITALOPRAM OXALATE 10 MG TABLET PO SCH (20:08)
[2021-11-20] MEDS: ATORVASTATIN 40 MG TABLET PO SCH (20:09)
[2021-11-20] MEDS: INSULIN GLARGINE,HUM 300 UNITS/3 ML CARTRIDGE SQ SCH (20:43)
[2021-11-20 20:52] VITALS: BP 143/65
[2021-11-21] MEDS: IV NS 1000 ML 1,000 ML IV SCH ×2 (01:22→15:58)
[2021-11-21 04:41] VITALS: BP 164/71
[2021-11-21] MEDS: hydrALAZINE HCL 50 MG TABLET PO SCH ×3 (05:06→21:13)
[2021-11-21 07:33] VITALS: BP 145/68
[2021-11-21] MEDS: FOLIC ACID/VITAMIN B COMP W-C TABLET PO SCH (08:45)
[2021-11-21] MEDS: GABAPENTIN 100 MG CAPSULE PO SCH ×2 (08:45→17:02)
[2021-11-21] MEDS: POTASSIUM CHLORIDE 8 MEQ TAB.PRT.SR PO SCH (08:45)
[2021-11-21] MEDS: LINAGLIPTIN 5 MG TABLET PO SCH (08:45)
[2021-11-21] MEDS: DOCUSATE SODIUM 100 MG CAPSULE PO SCH ×2 (08:46→17:02)
[2021-11-21] MEDS: FAMOTIDINE 20 MG TABLET PO SCH (08:57)
[2021-11-21] MEDS: METOPROLOL TARTRATE 25 MG TABLET PO SCH ×2 (08:58→20:36)
[2021-11-21] MEDS: CLOPIDOGREL 75 MG TABLET PO SCH (08:58)
[2021-11-21] MEDS: REMEDY ESSENTIAL ZINC PASTE 113 GM TOP SCH ×2 (08:59→20:37)
[2021-11-21] MEDS: NEPRO (VANILLA) 237 ML CAN PO SCH (08:59)
[2021-11-21] MEDS: CLOTRIMAZOLE 1% CREAM 30 GM TUBE TOP SCH ×2 (08:59→17:03)
[2021-11-21 12:00] LABS: HEMATOCRIT 29.6 % (36.7-47.1); MEAN CORPUSCULAR HEMOGLOBIN 29.1 uug (23.8-33.4); MEAN CORPUSCULAR VOLUME 87.4 fL (73.0-96.2); PLATELET COUNT (AUTO) 226 K/uL (152-348)
[2021-11-21 12:13] LABS: ALANINE AMINOTRANSFERASE 23 U/L (16-63); ALKALINE PHOSPHATASE 105 U/L (50-136); ASPARTATE AMINOTRANSFERASE 9 U/L (15-37); BILIRUBIN,TOTAL 0.3 mg/dL (0.2-1.0); CARBON DIOXIDE 25 mmol/L (21-32); CHLORIDE 106 mmol/L (98-107); CREATININE 1.7 mg/dL (0.6-1.3); GLUCOSE 181 mg/dL (74-106); POTASSIUM 4.4 mmol/L (3.5-5.1); TOTAL PROTEIN, SERUM 6.3 g/dL (6.4-8.2); UREA NITROGEN, BLOOD 28 mg/dL (7-18)
[2021-11-21 15:40] VITALS: BP 109/70
--- NOTE | 2021-11-21 16:15 | NUR ---
81 year old male, found with eyes close in bed. He is alert and oriented x3 with normal air movement. Respiration unlabored and no apparent distress noted. Patient is s/p fall-Acute -Subacute CVA. He is DNR, allergies Penicillins on CCHO diet. Right arm-Fo 20 gauage NS 75cc HR. Patient is incont, has redness on coccyx. Mod assist. Patient participate with PT in bed. He is able to swallow pills whole and has been complaining of dizziness. Fall precautions in place and pain is managed well. Currently in bed sleeping comfortably. Sn, will continue to monitor.
[2021-11-21] MEDS: INSULIN GLARGINE,HUM 300 UNITS/3 ML CARTRIDGE SQ SCH (20:35)
[2021-11-21] MEDS: ATORVASTATIN 40 MG TABLET PO SCH (20:37)
[2021-11-21] MEDS: ESCITALOPRAM OXALATE 10 MG TABLET PO SCH (20:37)
[2021-11-21 20:40] VITALS: BP 156/76
[2021-11-22 04:30] VITALS: BP 136/60
[2021-11-22] MEDS: hydrALAZINE HCL 50 MG TABLET PO SCH ×3 (05:54→21:24)
[2021-11-22] MEDS: IV NS 1000 ML 1,000 ML IV SCH ×2 (05:54→20:49)
[2021-11-22 07:57] VITALS: BP 136/69
[2021-11-22] MEDS: CLOPIDOGREL 75 MG TABLET PO SCH (08:13)
[2021-11-22] MEDS: LINAGLIPTIN 5 MG TABLET PO SCH (08:13)
[2021-11-22] MEDS: FAMOTIDINE 20 MG TABLET PO SCH (08:13)
[2021-11-22] MEDS: METOPROLOL TARTRATE 25 MG TABLET PO SCH ×2 (08:13→20:31)
[2021-11-22] MEDS: POTASSIUM CHLORIDE 8 MEQ TAB.PRT.SR PO SCH (08:13)
[2021-11-22] MEDS: DOCUSATE SODIUM 100 MG CAPSULE PO SCH ×2 (08:13→17:01)
[2021-11-22] MEDS: GABAPENTIN 100 MG CAPSULE PO SCH ×2 (08:13→16:26)
[2021-11-22] MEDS: FOLIC ACID/VITAMIN B COMP W-C TABLET PO SCH (08:13)
[2021-11-22] MEDS: NEPRO (VANILLA) 237 ML CAN PO SCH (08:13)
[2021-11-22] MEDS: REMEDY ESSENTIAL ZINC PASTE 113 GM TOP SCH ×2 (08:40→20:51)
[2021-11-22] MEDS: CLOTRIMAZOLE 1% CREAM 30 GM TUBE TOP SCH ×2 (08:40→16:26)
[2021-11-22 16:06] VITALS: BP 161/79
[2021-11-22 20:19] VITALS: BP 162/68
[2021-11-22] MEDS: ESCITALOPRAM OXALATE 10 MG TABLET PO SCH (20:30)
[2021-11-22] MEDS: ATORVASTATIN 40 MG TABLET PO SCH (20:30)
[2021-11-22] MEDS: INSULIN GLARGINE,HUM 300 UNITS/3 ML CARTRIDGE SQ SCH (20:53)
[2021-11-23 04:28] VITALS: BP 118/70
[2021-11-23] MEDS: hydrALAZINE HCL 50 MG TABLET PO SCH ×3 (05:40→21:20)
[2021-11-23 08:05] VITALS: BP 161/79
[2021-11-23] MEDS: METOPROLOL TARTRATE 25 MG TABLET PO SCH ×2 (08:12→20:02)
[2021-11-23] MEDS: FAMOTIDINE 20 MG TABLET PO SCH (08:12)
[2021-11-23] MEDS: FOLIC ACID/VITAMIN B COMP W-C TABLET PO SCH (08:12)
[2021-11-23] MEDS: NEPRO (VANILLA) 237 ML CAN PO SCH (08:12)
[2021-11-23] MEDS: POTASSIUM CHLORIDE 8 MEQ TAB.PRT.SR PO SCH (08:12)
[2021-11-23] MEDS: GABAPENTIN 100 MG CAPSULE PO SCH ×2 (08:12→16:18)
[2021-11-23] MEDS: DOCUSATE SODIUM 100 MG CAPSULE PO SCH ×2 (08:12→16:18)
[2021-11-23] MEDS: CLOPIDOGREL 75 MG TABLET PO SCH (08:12)
[2021-11-23] MEDS: REMEDY ESSENTIAL ZINC PASTE 113 GM TOP SCH ×2 (08:12→20:05)
[2021-11-23] MEDS: LINAGLIPTIN 5 MG TABLET PO SCH (08:12)
[2021-11-23] MEDS: CLOTRIMAZOLE 1% CREAM 30 GM TUBE TOP SCH ×2 (08:35→17:16)
[2021-11-23] MEDS: IV NS 1000 ML 1,000 ML IV SCH ×2 (09:12→21:54)
[2021-11-23] MEDS: ACETAMINOPHEN 325 MG TABLET PO PRN (15:51)
[2021-11-23 16:38] VITALS: BP 153/80
[2021-11-23 20:00] VITALS: BP 152/72
[2021-11-23] MEDS: ESCITALOPRAM OXALATE 10 MG TABLET PO SCH (20:02)
[2021-11-23] MEDS: ATORVASTATIN 40 MG TABLET PO SCH (20:02)
[2021-11-23] MEDS: INSULIN GLARGINE,HUM 300 UNITS/3 ML CARTRIDGE SQ SCH (20:05)
[2021-11-24 04:32] VITALS: BP 139/60
[2021-11-24] MEDS: hydrALAZINE HCL 50 MG TABLET PO SCH ×3 (05:00→22:16)
[2021-11-24 07:43] VITALS: BP 136/63
[2021-11-24] MEDS: AMLODIPINE 5 MG TABLET PO SCH (09:38)
[2021-11-24] MEDS: LINAGLIPTIN 5 MG TABLET PO SCH (09:38)
[2021-11-24] MEDS: DOCUSATE SODIUM 100 MG CAPSULE PO SCH ×2 (09:38→17:01)
[2021-11-24] MEDS: ACETAMINOPHEN 325 MG TABLET PO PRN (09:39)
[2021-11-24] MEDS: CLOPIDOGREL 75 MG TABLET PO SCH (09:39)
[2021-11-24] MEDS: FAMOTIDINE 20 MG TABLET PO SCH (09:39)
[2021-11-24] MEDS: POTASSIUM CHLORIDE 8 MEQ TAB.PRT.SR PO SCH (09:39)
[2021-11-24] MEDS: METOPROLOL TARTRATE 25 MG TABLET PO SCH ×2 (09:40→21:18)
[2021-11-24] MEDS: FOLIC ACID/VITAMIN B COMP W-C TABLET PO SCH (09:40)
[2021-11-24] MEDS: CLOTRIMAZOLE 1% CREAM 30 GM TUBE TOP SCH ×2 (09:41→17:02)
[2021-11-24] MEDS: REMEDY ESSENTIAL ZINC PASTE 113 GM TOP SCH ×2 (09:41→21:19)
[2021-11-24] MEDS: NEPRO (VANILLA) 237 ML CAN PO SCH (09:42)
--- NOTE | 2021-11-24 10:43 | NUR ---
0730-REC'D PATIENT IN BED, ASLEEP, NO RESPIRATORY DISTRESS NOTED. SKIN W/D TO THE TOUCH, AFEBRILE. ABLE TO WAKE UP, DENIES ANY DISCOMFORT. SAFETY MEASURES IN PLACE AND CALL LIGHT AT REACH. 0930-DUE MEDICATION ADMINISTERED WITH NO ASE NOTED; PATIENT EATING AND DRINKING WELL. NO C/O GI DISCOMFORT, SAFETY MEASURES IN PLACE AND CALL LIGHT WITHIN REACH.
[2021-11-24] MEDS: IV NS 1000 ML 1,000 ML IV SCH ×2 (10:54→22:59)
[2021-11-24 20:00] VITALS: BP 176/80
[2021-11-24] MEDS: ESCITALOPRAM OXALATE 10 MG TABLET PO SCH (21:17)
[2021-11-24] MEDS: ATORVASTATIN 40 MG TABLET PO SCH (21:18)
[2021-11-24] MEDS: INSULIN GLARGINE,HUM 300 UNITS/3 ML CARTRIDGE SQ SCH (21:26)
--- NOTE | 2021-11-25 01:30 | NUR ---
PATIENT ASLEEP AT THIS TIME, IVF HYDRATION IN PROGRESS ORDERED. PERIPHERAL TO RT F/A INFUSING WELL WITH SITE INTACT. PATIENT ABLE TO WAKE UP, DENIES PAIN, REPOSITIONED FOR COMFORT AND PRESSURE RELIEF. SAFETY MEASURES IN PLACE AND CALL LIGHT AT REACH.
[2021-11-25 04:00] VITALS: BP 147/63
[2021-11-25] MEDS: hydrALAZINE HCL 50 MG TABLET PO SCH ×3 (06:10→21:47)
[2021-11-25 08:08] VITALS: BP 149/58
[2021-11-25] MEDS: FAMOTIDINE 20 MG TABLET PO SCH (08:33)
[2021-11-25] MEDS: METOPROLOL TARTRATE 25 MG TABLET PO SCH ×2 (08:33→20:30)
[2021-11-25] MEDS: POTASSIUM CHLORIDE 8 MEQ TAB.PRT.SR PO SCH (08:33)
[2021-11-25] MEDS: LINAGLIPTIN 5 MG TABLET PO SCH (08:33)
[2021-11-25] MEDS: CLOPIDOGREL 75 MG TABLET PO SCH (08:33)
[2021-11-25] MEDS: FOLIC ACID/VITAMIN B COMP W-C TABLET PO SCH (08:33)
[2021-11-25] MEDS: AMLODIPINE 5 MG TABLET PO SCH (08:33)
[2021-11-25] MEDS: DOCUSATE SODIUM 100 MG CAPSULE PO SCH ×2 (08:33→16:48)
[2021-11-25] MEDS: REMEDY ESSENTIAL ZINC PASTE 113 GM TOP SCH ×2 (08:34→20:29)
[2021-11-25] MEDS: CLOTRIMAZOLE 1% CREAM 30 GM TUBE TOP SCH ×2 (08:34→16:49)
[2021-11-25] MEDS: NEPRO (VANILLA) 237 ML CAN PO SCH (08:34)
[2021-11-25] MEDS: GLUCERNA SHAKE 237 ML CAN PO SCH (11:39)
[2021-11-25 12:07] VITALS: BP 150/64
[2021-11-25] MEDS: IV NS 1000 ML 1,000 ML IV SCH (12:57)
[2021-11-25 15:24] VITALS: BP 165/85
--- NOTE | 2021-11-25 15:53 | NUR ---
INTERDISCIPLINARY TEAM CONFERENCE
[2021-11-25 20:00] VITALS: BP 150/75
[2021-11-25] MEDS: INSULIN GLARGINE,HUM 300 UNITS/3 ML CARTRIDGE SQ SCH (20:28)
[2021-11-25] MEDS: ATORVASTATIN 40 MG TABLET PO SCH (20:29)
[2021-11-25] MEDS: ESCITALOPRAM OXALATE 10 MG TABLET PO SCH (20:30)
[2021-11-25] MEDS: MECLIZINE HCL 25 MG TABLET PO PRN (20:30)
[2021-11-26] MEDS: IV NS 1000 ML 1,000 ML IV SCH ×2 (01:42→16:49)
[2021-11-26 04:00] VITALS: BP 157/69
[2021-11-26] MEDS: hydrALAZINE HCL 50 MG TABLET PO SCH ×3 (05:01→21:31)
--- NOTE | 2021-11-26 06:39 | NUR ---
no significant changes during the shift. will endorse to the next shift for continuity of care.
[2021-11-26 07:39] VITALS: BP 163/74
--- NOTE | 2021-11-26 08:00 | NUR ---
RECEIVED AWAKE ALERT FOLLOWS COMMANDS BUT IS DISORIENTED REQUIRES MAX ASSIST FOR ALL ADL REMAIN ON IVF ORDERED WITH NO S/S OF INFILTERATION ON SITE.CALL LIGHTS AND PERSONAL BELONGINGS ARE WITHIN EASY REACH AT THIS TIME WILL CONTINUE TO OBSERVE.
--- NOTE | 2021-11-26 08:30 | NUR ---
PATIENT C/O FEELS DIZZY MEDICATED WITH ANTIVERT ORDERED PHYSICAL THERAPY HERE AND PATIENT GOTTEN UP FOR PHYSICAL THERAPEUTIC EXERCISES NOT IN DISTRESS AT THIS TIME.
[2021-11-26] MEDS: POTASSIUM CHLORIDE 8 MEQ TAB.PRT.SR PO SCH (08:31)
[2021-11-26] MEDS: MECLIZINE HCL 25 MG TABLET PO PRN (08:31)
[2021-11-26] MEDS: FAMOTIDINE 20 MG TABLET PO SCH (08:31)
[2021-11-26] MEDS: FOLIC ACID/VITAMIN B COMP W-C TABLET PO SCH (08:31)
[2021-11-26] MEDS: DOCUSATE SODIUM 100 MG CAPSULE PO SCH ×2 (08:31→16:49)
[2021-11-26] MEDS: CLOPIDOGREL 75 MG TABLET PO SCH (08:31)
[2021-11-26] MEDS: LINAGLIPTIN 5 MG TABLET PO SCH (08:31)
[2021-11-26] MEDS: METOPROLOL TARTRATE 25 MG TABLET PO SCH ×2 (08:49→20:23)
[2021-11-26] MEDS: AMLODIPINE 5 MG TABLET PO SCH (08:49)
[2021-11-26] MEDS: GLUCERNA SHAKE 237 ML CAN PO SCH (09:58)
[2021-11-26] MEDS: REMEDY ESSENTIAL ZINC PASTE 113 GM TOP SCH ×2 (09:59→20:23)
[2021-11-26] MEDS: CLOTRIMAZOLE 1% CREAM 30 GM TUBE TOP SCH ×2 (09:59→16:50)
[2021-11-26 15:21] VITALS: BP 155/74
--- NOTE | 2021-11-26 18:00 | NUR ---
RESTING IN BED TOLERATING DIET ORDERED WITH NO S/S OF ASPIRATION IVF INFUSING ORDERED WILL CONTINUE TO OBSERVE.
[2021-11-26 20:00] VITALS: BP 167/72
[2021-11-26] MEDS: BLOOD SUGAR DIAGNOSTIC 1 EACH STRIP VI SCH (20:21)
[2021-11-26] MEDS: INSULIN GLARGINE,HUM 300 UNITS/3 ML CARTRIDGE SQ SCH (20:22)
[2021-11-26] MEDS: ESCITALOPRAM OXALATE 10 MG TABLET PO SCH (20:22)
[2021-11-26] MEDS: ATORVASTATIN 40 MG TABLET PO SCH (20:22)
[2021-11-27 04:00] VITALS: BP 154/50
[2021-11-27] MEDS: hydrALAZINE HCL 50 MG TABLET PO SCH ×3 (05:30→22:07)
[2021-11-27] MEDS: IV NS 1000 ML 1,000 ML IV SCH ×2 (05:34→20:15)
[2021-11-27 07:47] VITALS: BP 147/63
[2021-11-27] MEDS: FAMOTIDINE 20 MG TABLET PO SCH (08:07)
[2021-11-27] MEDS: AMLODIPINE 5 MG TABLET PO SCH (08:07)
[2021-11-27] MEDS: POTASSIUM CHLORIDE 8 MEQ TAB.PRT.SR PO SCH (08:07)
[2021-11-27] MEDS: FOLIC ACID/VITAMIN B COMP W-C TABLET PO SCH (08:07)
[2021-11-27] MEDS: GLUCERNA SHAKE 237 ML CAN PO SCH (08:07)
[2021-11-27] MEDS: LINAGLIPTIN 5 MG TABLET PO SCH (08:07)
[2021-11-27] MEDS: METOPROLOL TARTRATE 25 MG TABLET PO SCH ×2 (08:07→20:15)
[2021-11-27] MEDS: CLOPIDOGREL 75 MG TABLET PO SCH (08:07)
[2021-11-27] MEDS: DOCUSATE SODIUM 100 MG CAPSULE PO SCH ×2 (08:07→16:11)
[2021-11-27] MEDS: REMEDY ESSENTIAL ZINC PASTE 113 GM TOP SCH ×2 (08:33→20:15)
[2021-11-27] MEDS: CLOTRIMAZOLE 1% CREAM 30 GM TUBE TOP SCH ×2 (08:33→16:12)
[2021-11-27 16:34] VITALS: BP 163/77
[2021-11-27] MEDS: ESCITALOPRAM OXALATE 10 MG TABLET PO SCH (20:15)
[2021-11-27] MEDS: ATORVASTATIN 40 MG TABLET PO SCH (20:15)
[2021-11-27] MEDS: BLOOD SUGAR DIAGNOSTIC 1 EACH STRIP VI SCH (20:25)
[2021-11-27] MEDS: INSULIN GLARGINE,HUM 300 UNITS/3 ML CARTRIDGE SQ SCH (20:26)
[2021-11-27 20:32] VITALS: BP 162/77
[2021-11-28 04:08] VITALS: BP 137/67
[2021-11-28] MEDS: hydrALAZINE HCL 50 MG TABLET PO SCH ×3 (05:15→21:25)
[2021-11-28 07:36] VITALS: BP 158/68
[2021-11-28] MEDS: DOCUSATE SODIUM 100 MG CAPSULE PO SCH ×2 (08:09→16:02)
[2021-11-28] MEDS: POTASSIUM CHLORIDE 8 MEQ TAB.PRT.SR PO SCH (08:09)
[2021-11-28] MEDS: FAMOTIDINE 20 MG TABLET PO SCH (08:10)
[2021-11-28] MEDS: CLOPIDOGREL 75 MG TABLET PO SCH (08:10)
[2021-11-28] MEDS: METOPROLOL TARTRATE 25 MG TABLET PO SCH ×2 (08:10→21:18)
[2021-11-28] MEDS: AMLODIPINE 5 MG TABLET PO SCH (08:10)
[2021-11-28] MEDS: LINAGLIPTIN 5 MG TABLET PO SCH (08:10)
[2021-11-28] MEDS: GLUCERNA SHAKE 237 ML CAN PO SCH (08:10)
[2021-11-28] MEDS: FOLIC ACID/VITAMIN B COMP W-C TABLET PO SCH (08:10)
[2021-11-28] MEDS: CLOTRIMAZOLE 1% CREAM 30 GM TUBE TOP SCH ×2 (08:46→16:03)
[2021-11-28] MEDS: REMEDY ESSENTIAL ZINC PASTE 113 GM TOP SCH ×2 (08:46→21:18)
[2021-11-28 09:05] LABS: HEMATOCRIT 28.9 % (36.7-47.1); MEAN CORPUSCULAR HEMOGLOBIN 29.6 uug (23.8-33.4); PLATELET COUNT (AUTO) 174 K/uL (152-348)
[2021-11-28 09:09] LABS: CARBON DIOXIDE 24 mmol/L (21-32); CHLORIDE 108 mmol/L (98-107); CREATININE 1.5 mg/dL (0.6-1.3); GLUCOSE 126 mg/dL (74-106); UREA NITROGEN, BLOOD 25 mg/dL (7-18)
[2021-11-28] MEDS: IV NS 1000 ML 1,000 ML IV SCH ×2 (09:33→21:20)
[2021-11-28 15:24] VITALS: BP 132/73
[2021-11-28 20:21] VITALS: BP 161/71
[2021-11-28] MEDS: ATORVASTATIN 40 MG TABLET PO SCH (21:17)
[2021-11-28] MEDS: ESCITALOPRAM OXALATE 10 MG TABLET PO SCH (21:18)
[2021-11-28] MEDS: INSULIN GLARGINE,HUM 300 UNITS/3 ML CARTRIDGE SQ SCH (21:19)
[2021-11-28] MEDS: BLOOD SUGAR DIAGNOSTIC 1 EACH STRIP VI SCH (21:19)
[2021-11-29 04:14] VITALS: BP 143/67
[2021-11-29] MEDS: hydrALAZINE HCL 50 MG TABLET PO SCH ×3 (05:10→21:25)
[2021-11-29] MEDS: POTASSIUM CHLORIDE 8 MEQ TAB.PRT.SR PO SCH (08:00)
[2021-11-29] MEDS: FAMOTIDINE 20 MG TABLET PO SCH (08:00)
[2021-11-29] MEDS: FOLIC ACID/VITAMIN B COMP W-C TABLET PO SCH (08:00)
[2021-11-29] MEDS: DOCUSATE SODIUM 100 MG CAPSULE PO SCH ×2 (08:00→16:21)
[2021-11-29] MEDS: LINAGLIPTIN 5 MG TABLET PO SCH (08:00)
[2021-11-29] MEDS: CLOPIDOGREL 75 MG TABLET PO SCH (08:00)
[2021-11-29] MEDS: METOPROLOL TARTRATE 25 MG TABLET PO SCH ×2 (08:00→21:19)
[2021-11-29] MEDS: GLUCERNA SHAKE 237 ML CAN PO SCH (08:01)
[2021-11-29] MEDS: AMLODIPINE 5 MG TABLET PO SCH (08:01)
[2021-11-29] MEDS: CLOTRIMAZOLE 1% CREAM 30 GM TUBE TOP SCH ×2 (08:25→16:22)
[2021-11-29] MEDS: REMEDY ESSENTIAL ZINC PASTE 113 GM TOP SCH ×2 (08:26→20:26)
[2021-11-29 11:30] VITALS: BP 153/69
[2021-11-29 16:00] VITALS: BP 117/63
[2021-11-29] MEDS: ESCITALOPRAM OXALATE 10 MG TABLET PO SCH (20:25)
[2021-11-29] MEDS: ATORVASTATIN 40 MG TABLET PO SCH (20:25)
[2021-11-29] MEDS: BLOOD SUGAR DIAGNOSTIC 1 EACH STRIP VI SCH (20:25)
[2021-11-29] MEDS: INSULIN GLARGINE,HUM 300 UNITS/3 ML CARTRIDGE SQ SCH (20:45)
[2021-11-29 21:32] VITALS: BP 127/79
[2021-11-30 04:00] VITALS: BP 110/68
[2021-11-30] MEDS: hydrALAZINE HCL 50 MG TABLET PO SCH ×3 (05:23→21:47)
[2021-11-30] MEDS: CLOPIDOGREL 75 MG TABLET PO SCH (08:06)
[2021-11-30] MEDS: DOCUSATE SODIUM 100 MG CAPSULE PO SCH ×2 (08:06→16:11)
[2021-11-30] MEDS: FAMOTIDINE 20 MG TABLET PO SCH (08:06)
[2021-11-30] MEDS: AMLODIPINE 5 MG TABLET PO SCH (08:06)
[2021-11-30] MEDS: FOLIC ACID/VITAMIN B COMP W-C TABLET PO SCH (08:06)
[2021-11-30] MEDS: POTASSIUM CHLORIDE 8 MEQ TAB.PRT.SR PO SCH (08:06)
[2021-11-30] MEDS: LINAGLIPTIN 5 MG TABLET PO SCH (08:06)
[2021-11-30] MEDS: METOPROLOL TARTRATE 25 MG TABLET PO SCH ×2 (08:07→20:01)
[2021-11-30] MEDS: GLUCERNA SHAKE 237 ML CAN PO SCH (08:07)
[2021-11-30 08:18] VITALS: BP 140/75
[2021-11-30] MEDS: CLOTRIMAZOLE 1% CREAM 30 GM TUBE TOP SCH ×2 (09:01→16:11)
[2021-11-30] MEDS: REMEDY ESSENTIAL ZINC PASTE 113 GM TOP SCH ×2 (09:01→20:48)
[2021-11-30 11:11] LABS: HEMATOCRIT 30.1 % (36.7-47.1); MEAN CORPUSCULAR HEMOGLOBIN 29.3 uug (23.8-33.4); MEAN CORPUSCULAR VOLUME 87.1 fL (73.0-96.2); PLATELET COUNT (AUTO) 173 K/uL (152-348)
[2021-11-30 11:24] LABS: ALANINE AMINOTRANSFERASE 16 U/L (16-63); ALKALINE PHOSPHATASE 94 U/L (50-136); ASPARTATE AMINOTRANSFERASE 12 U/L (15-37); BILIRUBIN,TOTAL 0.5 mg/dL (0.2-1.0); CARBON DIOXIDE 25 mmol/L (21-32); CHLORIDE 105 mmol/L (98-107); CREATININE 1.7 mg/dL (0.6-1.3); GLUCOSE 189 mg/dL (74-106); POTASSIUM 4.1 mmol/L (3.5-5.1); TOTAL PROTEIN, SERUM 6.6 g/dL (6.4-8.2); UREA NITROGEN, BLOOD 25 mg/dL (7-18)
[2021-11-30] MEDS: NUTRISOURCE FIBER 4 GM PACKET PO SCH (12:29)
[2021-11-30 16:32] VITALS: BP 123/62
[2021-11-30] MEDS: ATORVASTATIN 40 MG TABLET PO SCH (20:01)
[2021-11-30] MEDS: ESCITALOPRAM OXALATE 10 MG TABLET PO SCH (20:01)
[2021-11-30 20:45] VITALS: BP 139/65
[2021-11-30] MEDS: BLOOD SUGAR DIAGNOSTIC 1 EACH STRIP VI SCH (20:48)
[2021-11-30] MEDS: INSULIN GLARGINE,HUM 300 UNITS/3 ML CARTRIDGE SQ SCH (20:48)
[2021-12-01 00:21] LABS: *BILIRUBIN,URIN NEGATIVE (NEGATIVE); *BLOOD, URINE NEGATIVE (NEGATIVE); *CLARITY,URINE CLEAR (CLEAR); *COLOR,URINE YELLOW (YELLOW); *KETONES,URINE NEGATIVE (NEGATIVE); *UROBILINOGEN,URINE 0.2 E.U./dl (NORMAL); LEUKOCYTE ESTERASE ,URINE NEGATIVE (NEGATIVE); NITRITE, URINE NEGATIVE (NEGATIVE); UGLUCOSE NEGATIVE (NEGATIVE)
[2021-12-01 02:04] LABS: BACTERIA,URINE FEW /HPF (NONE SEEN); RBC,URINE NONE SEEN /HPF (0-3); WBC,URINE NONE SEEN /HPF (0-3)
[2021-12-01 02:05] LABS: SQUAMOUS EPITHELIAL CELL,UR FEW /HPF (NONE SEEN)
[2021-12-01 04:15] VITALS: BP 131/56
[2021-12-01] MEDS: hydrALAZINE HCL 50 MG TABLET PO SCH ×2 (06:03→14:25)
[2021-12-01 07:33] VITALS: BP 146/75
--- NOTE | 2021-12-01 09:00 | NUR ---
pt will be discharge today per aru CM.
[2021-12-01] MEDS: FAMOTIDINE 20 MG TABLET PO SCH (09:09)
[2021-12-01] MEDS: DOCUSATE SODIUM 100 MG CAPSULE PO SCH (09:09)
[2021-12-01] MEDS: POTASSIUM CHLORIDE 8 MEQ TAB.PRT.SR PO SCH (09:09)
[2021-12-01] MEDS: FOLIC ACID/VITAMIN B COMP W-C TABLET PO SCH (09:09)
[2021-12-01] MEDS: LINAGLIPTIN 5 MG TABLET PO SCH (09:09)
[2021-12-01] MEDS: CLOPIDOGREL 75 MG TABLET PO SCH (09:09)
[2021-12-01] MEDS: AMLODIPINE 5 MG TABLET PO SCH (09:10)
[2021-12-01] MEDS: METOPROLOL TARTRATE 25 MG TABLET PO SCH (09:10)
[2021-12-01] MEDS: NUTRISOURCE FIBER 4 GM PACKET PO SCH (09:11)
[2021-12-01] MEDS: GLUCERNA SHAKE 237 ML CAN PO SCH (09:11)
[2021-12-01] MEDS: CLOTRIMAZOLE 1% CREAM 30 GM TUBE TOP SCH (09:11)
[2021-12-01] MEDS: REMEDY ESSENTIAL ZINC PASTE 113 GM TOP SCH (09:12)
--- NOTE | 2021-12-01 12:00 | NUR ---
pt tolerated pt well. pt is ambulatory with 3 person assit per pt.
[2021-12-01 14:25] VITALS: BP 145/64
--- NOTE | 2021-12-01 15:35 | NUR ---
pt is discharge. all belonging accounted for. pt was hand picker by ambulance via gurney. pt vital wnl. no pain complain. no sob noted. iv access removed. pt will go back to [facility]. home health will continue care.
== END 2021-12-01 16:00 | disposition home health service (06) | DRG 56 ==
PROVIDERS: ADMIT Physical Medicine & Rehabilitation Pain Medicine; ATTEND Physical Medicine & Rehabilitation Pain Medicine
DX: I69.391 Dysphagia following cerebral infarction (principal); N17.0 Acute kidney failure with tubular necrosis; D68.59 Other primary thrombophilia; G23.8 Other specified degenerative diseases of basal ganglia; I69.398 Other sequelae of cerebral infarction; S01.01XD Laceration without foreign body of scalp, subsequent encounter; W01.0XXD Fall on same level from slipping, tripping and stumbling without subsequent striking against object, subsequent encounter; E11.22 Type 2 diabetes mellitus with diabetic chronic kidney disease; I12.9 Hypertensive chronic kidney disease with stage 1 through stage 4 chronic kidney disease, or unspecified chronic kidney disease; N18.9 Chronic kidney disease, unspecified; Z87.891 Personal history of nicotine dependence; Z96.652 Presence of left artificial knee joint; F03.90 Unspecified dementia, unspecified severity, without behavioral disturbance, psychotic disturbance, mood disturbance, and anxiety; E66.3 Overweight; E11.65 Type 2 diabetes mellitus with hyperglycemia; K21.9 Gastro-esophageal reflux disease without esophagitis; R53.1 Weakness; D63.8 Anemia in other chronic diseases classified elsewhere; D50.9 Iron deficiency anemia, unspecified; E88.09 Other disorders of plasma-protein metabolism, not elsewhere classified; G62.9 Polyneuropathy, unspecified; R13.10 Dysphagia, unspecified; Z88.0 Allergy status to penicillin; I25.10 Atherosclerotic heart disease of native coronary artery without angina pectoris
CPT/HCPCS: 36415; 85025; 97535-GO-CO; A6209; J1815; J7040; J8597